=== PATIENT | male | born 1960 | race African-American/Black ===

== ENCOUNTER 2023-04-30 12:10 | Outpatient (CLI) | payer BC, SELFPAY ==
--- NOTE | ~2023-04-30 | US_ITS ---
Renal-Bladder ultrasound Clinical History: Chronic kidney disease Technique: Real-time sonographic imaging of the kidneys and urinary bladder was performed. Findings: The right kidney measures 9.3 cm in length and the left kidney measures 10.4 cm. There is n o hydronephrosis or renal calculus identified. Renal cortical echogenicity is mildly increased. No re nal mass lesion is identified. The urinary bladder is moderately distended at the time of this exam. No intraluminal echoes are iden tified. No abnormal wall thickening is seen. Impression: Echogenic kidneys consistent with chronic medical renal disease. No hydronephrosis. Reviewed, dictated and finalized at location . DREN'S AUTHOR Impression: Echogenic kidneys consistent with chronic medical renal disease. No hydronephro sis.
== END 2023-04-30 12:11 | disposition home or self-care (01) ==
PROVIDERS: PCP Family Medicine; Visit Provider Internal Medicine Nephrology
DX: E11.22 Type 2 diabetes mellitus with diabetic chronic kidney disease (principal); I12.9 Hypertensive chronic kidney disease with stage 1 through stage 4 chronic kidney disease, or unspecified chronic kidney disease; N18.4 Chronic kidney disease, stage 4 (severe)
CPT/HCPCS: 76775